=== PATIENT | female | born 1950 | race Hispanic/Latino ===

== ENCOUNTER 2018-09-30 05:38 | Day surgery (SDC) | payer MEDICARE ==
[~2018-09-30] VITALS: Ht 162.6 cm; Wt 69.1 kg
[2018-09-30] MEDS ORDERED: SODIUM CHLORIDE 0.9% 1000ML 1,000 ML IV ONE ×2 (05:54→05:55)
[2018-09-30 06:41] VITALS: BP 157/54
[2018-09-30] MEDS ORDERED: PROPOFOL 10 MG/ML 20ML VIAL IV ONE (07:36)
[2018-09-30 08:00] VITALS: BP 100/40
[2018-09-30 08:05] VITALS: BP 100/52
[2018-09-30 08:10] VITALS: BP 149/50
[2018-09-30 08:15] VITALS: BP 145/44
[2018-09-30 08:30] VITALS: BP 146/50
== END 2018-09-30 08:35 | disposition home or self-care (01) ==
LOC: ENDO 05:38 → DAH 05:38 → ENDO 08:35
PROVIDERS: ATTEND Internal Medicine
DX: Z12.11 Encounter for screening for malignant neoplasm of colon (principal); K57.30 Diverticulosis of large intestine without perforation or abscess without bleeding; K64.0 First degree hemorrhoids; I12.0 Hypertensive chronic kidney disease with stage 5 chronic kidney disease or end stage renal disease; N18.6 End stage renal disease; Z79.899 Other long term (current) drug therapy; K63.5 Polyp of colon; D12.3 Benign neoplasm of transverse colon; D12.4 Benign neoplasm of descending colon; E78.5 Hyperlipidemia, unspecified; M19.90 Unspecified osteoarthritis, unspecified site; Z98.890 Other specified postprocedural states; Z79.01 Long term (current) use of anticoagulants
CPT/HCPCS: 36415; 45380; 82948 ×2; 84132; 88305; 93005; A4606; J2704; J7030 ×2